=== PATIENT | male | born 1980 | race Hispanic/Latino ===

== ENCOUNTER 2022-03-14 16:39 | Emergency (ER) | payer SELFPAY ==
--- OUTSIDE RECORDS SUMMARY | 2022-03-14 16:42 | XMS REPORT | Continuity of Care Document ---
:1980 Author Organization [facility] t Address Critical access hospital[address] [place] [address] [place] [id number] Care Team Providers Name Role Phone Unavailable Unavailable Unavailable Problems This patient has no known problems. Allergies, Adverse Reactions, Alerts This patient has no known allergies or adverse reactions. Medications This patient has no known medications. Procedures This patient has no known procedures. Results This patient has no known results.
--- NOTE | 2022-03-14 18:34 | RAD REPORT ---
EXAM DESCRIPTION: RAD - Foot Left 3 View - 03/14/2022 6:18 pm CLINICAL HISTORY: Left Foot pain status post injury FINDINGS: No fracture or dislocation is seen. A radiopaque foreign body is not seen
[2022-03-14] MEDS ORDERED: TETANUS & DIPHTHERIA TOX,ADULT 0.5 ML VIAL ONE (19:36)
[2022-03-14] MEDS ORDERED: CEFAZOLIN SODIUM 1 GM/VIAL ONE (19:54)
[2022-03-14] MEDS ORDERED: HYDROCODONE/APAP 10/325 TAB ONE (19:56)
[2022-03-14] MEDS ORDERED: LIDOCAINE 1% MPF 2 ML AMPULE ONE (19:56)
[2022-03-14] MEDS ORDERED: WATER FOR INJ,STERILE 10 ML ONE (19:58)
[2022-03-14] MEDS ORDERED: LIDOCAINE 1% MPF 30 ML VIAL ONE (20:16)
--- NOTE | 2022-03-14 20:25 | ER ---
Nurse's Notes [facility] Name: Vj Brar Sr Age: 41 yrs Sex: Male : 1980 Arrival Date: 03/14/2022 Time: 16:42 Bed 23 Private MD: Diagnosis: Puncture wound without foreign body, left foot Presentation: 03/14 17:22 Chief complaint: Patient states: I was walking my dog and he pulled me and I stepped on jb4 a piece of wood that went into the bottom of my foot. I am diabetic and wanted to get it checked right away. I think the piece is still in there. Coronavirus screen: At this time, the client does not indicate any symptoms associated with coronavirus-19. Ebola Screen: No symptoms or risks identified at this time. Initial Sepsis Screen: Does the patient meet any 2 criteria? No. Patient's initial sepsis screen is negative. Does the patient have a suspected source of infection? No. Patient's initial sepsis screen is negative. Risk Assessment: Do you want to hurt yourself or someone else? Patient reports no desire to harm self or others. Onset of symptoms was March 14, 2022. Transition of care: patient was not received from another setting of care. 17:22 Method Of Arrival: Wheelchair jb4 17:22 Acuity: FARIDA 3 jb4 Historical: - Allergies: 17:23 No Known Allergies; jb4 - Home Meds: 17:23 Metformin Oral [Active]; glimepiride Oral [Active]; jb4 - PMHx: 17:23 Diabetes mellitus; jb4 - PSHx: 17:23 None; jb4 - Immunization history:: Adult Immunizations up to date, Last tetanus immunization: unknown. - Social history:: Smoking status: Patient denies any tobacco usage or history of. Screenin:08 Abuse screen: Denies threats or abuse. Denies injuries from another. Nutritional tw5 screening: No deficits noted. Tuberculosis screening: No symptoms or risk factors identified. Fall Risk None identified. Assessment: 20:08 General: Appears in no apparent distress. uncomfortable, Behavior is calm, cooperative, tw5 appropriate for age. Pain: Complains of pain in left foot Pain currently is 9 out of 10 on a pain scale. Neuro: No deficits noted. Cardiovascular: No deficits noted. Respiratory: No deficits noted. 20:43 Reassessment: Patient states feeling better. Patient states symptoms have improved. tw5 Vital Signs: 17:22 BP 136 / 85; Pulse 89; Resp 16; Temp 98.2(TE); Pulse Ox 100% on R/A; Weight 79.38 kg jb4 (R); Height 5 ft. 6 in. (167.64 cm); Pain 8/10; 20:08 BP 165 / 99; Pulse 74; Resp 18; Pulse Ox 100% ; tw5 20:43 Pulse 80; Resp 18; Pulse Ox 100% on R/A; Pain 8/10; tw5 17:22 Body Mass Index 28.25 (79.38 kg, 167.64 cm) jb4 ED Course: 16:42 Patient arrived in ED. ja2 16:47 Buzz Crenshaw NP is PHCP. pm1 16:47 Gordon Zuleta MD is Attending Physician. pm1 17:23 Triage completed. jb4 17:23 Arm band placed on right wrist. jb4 18:20 Foot Left 3 View XRAY In Process Unspecified. EDMS 20:08 Patient has correct armband on for positive identification. Call light in reach. Side tw5 rails up X2. Adult w/ patient. Pulse ox on. NIBP on. Door closed. Moved to private room. 20:43 Wound care: to puncture located on left foot was dressed with Neosporin, band aid. tw5 20:44 puncture wound. Patient did not have IV access during this emergency room visit. tw5 Administered Medications: 19:39 Drug: Tetanus-Diphtheria Toxoid Adult 0.5 ml {Procurement Technician: [employer]. Exp: jb4 02/06/2024. Lot #: [id number]. } Route: IM; Site: right deltoid; 20:45 Follow up: Response: No adverse reaction tw5 20:08 Drug: [place] (HYDROcodone-acetaminophen) 10 mg-325 mg 1 tabs Route: PO; tw5 20:44 Follow up: Response: No adverse reaction; Pain is decreased; RASS: Alert and Calm (0) tw5 20:08 Drug: Ancef (cefazolin) 1 grams Route: IM; Site: left gluteus; tw5 20:44 Follow up: Response: No adverse reaction tw5 Outcome: 20:23 Discharge ordered by . pm1 20:43 Discharged to home via wheelchair, with family. tw5 20:43 Condition: improved 20:43 Discharge instructions given to patient, Instructed on discharge instructions, follow up and referral plans. medication usage, Demonstrated understanding of instructions, follow-up care, medications, Prescriptions given X 2. 20:44 Patient left the ED. tw5 Signatures: Dispatcher [employer] EDMS Buzz Crenshaw NP SPINNER FRAME pm1 Iván Rocha, CORA RN jb4 Sarah Beth Carbone Tiffany tw5 Corrections: (The following items were deleted from the chart) 17:25 17:23 PMHx: None; maricruz jbMario
--- NOTE | 2022-03-14 20:25 | EDPHYS ---
Physician Documentation [facility] Name: Vj Brar Sr Age: 41 yrs Sex: Male : 1980 Arrival Date: 03/14/2022 Time: 16:42 Bed 23 Private MD: ED Physician Gordon Zuleta HPI: 03/14 17:17 This 41 yrs old Male presents to ER via Wheelchair with complaints of Puncture pm1 Wound To Foot. 17:17 The patient presents with a puncture wound, piece of wood. The complaints affect the pm1 left foot. Context: The problem was sustained outdoors, resulted from the patient stepping on wood the patient can fully bear weight, the patient is able to ambulate. Onset: The symptoms/episode began/occurred just prior to arrival. Modifying factors: The symptoms are alleviated by elevation of extremity, the symptoms are aggravated by weight bearing. Associated signs and symptoms: Pertinent negatives: numbness, tingling. Severity of symptoms: in the emergency department the symptoms are unchanged. The patient has not experienced similar symptoms in the past. The patient has not recently seen a physician. Historical: - Allergies: 17:23 No Known Allergies; jb4 - Home Meds: 17:23 Metformin Oral [Active]; glimepiride Oral [Active]; jb4 - PMHx: 17:23 Diabetes mellitus; jb4 - PSHx: 17:23 None; jb4 - Immunization history:: Adult Immunizations up to date, Last tetanus immunization: unknown. - Social history:: Smoking status: Patient denies any tobacco usage or history of. ROS: 17:17 MS/extremity: Positive for puncture, of the left foot. pm1 17:17 Constitutional: Negative for fever, chills, and weight loss, Cardiovascular: Negative for chest pain, palpitations, and edema, Respiratory: Negative for shortness of breath, cough, wheezing, and pleuritic chest pain. 17:17 Neuro: Negative for headache, weakness, numbness, tingling, and seizure. 17:17 Skin: Positive for puncture, of the left foot. 17:17 All other systems are negative. Exam: 17:17 Constitutional: This is a well developed, well nourished patient who is awake, alert, pm1 and in no acute distress. Head/Face: Normocephalic, atraumatic. 17:17 Cardiovascular: Exam negative for acute changes, Rate: normal, Rhythm: regular, Pulses: no pulse deficits are appreciated. 17:17 Respiratory: Exam negative for acute changes, respiratory distress, shortness of breath. 17:17 Musculoskeletal/extremity: Extremities: grossly normal except: noted in the arch of left foot: puncture, Circulation is intact in all extremities. 17:17 Skin: Appearance: normal except for affected area, injury, puncture(s), of the arch of left foot. Vital Signs: 17:22 BP 136 / 85; Pulse 89; Resp 16; Temp 98.2(TE); Pulse Ox 100% on R/A; Weight 79.38 kg jb4 (R); Height 5 ft. 6 in. (167.64 cm); Pain 8/10; 20:08 BP 165 / 99; Pulse 74; Resp 18; Pulse Ox 100% ; tw5 20:43 Pulse 80; Resp 18; Pulse Ox 100% on R/A; Pain 8/10; tw5 17:22 Body Mass Index 28.25 (79.38 kg, 167.64 cm) jb4 MDM: 17:24 Patient medically screened. pm1 17:34 Data reviewed: vital signs. Data interpreted: Pulse oximetry: on room air is 100 %. pm1 Interpretation: normal. 20:22 Counseling: I had a detailed discussion with the patient and/or guardian regarding: the pm1 historical points, exam findings, and any diagnostic results supporting the discharge/admit diagnosis, the need for outpatient follow up, to return to the emergency department if symptoms worsen or persist or if there are any questions or concerns that arise at home. 03/14 17:17 Order name: Foot Left 3 View XRAY; Complete Time: 18:48 pm1 Administered Medications: 19:39 Drug: Tetanus-Diphtheria Toxoid Adult 0.5 ml {Welder Experimental: [employer]. Exp: jb4 02/06/2024. Lot #: [id number]. } Route: IM; Site: right deltoid; 20:45 Follow up: Response: No adverse reaction tw5 20:08 Drug: [place] (HYDROcodone-acetaminophen) 10 mg-325 mg 1 tabs Route: PO; tw5 20:44 Follow up: Response: No adverse reaction; Pain is decreased; RASS: Alert and Calm (0) tw5 20:08 Drug: Ancef (cefazolin) 1 grams Route: IM; Site: left gluteus; tw5 20:44 Follow up: Response: No adverse reaction tw5 Disposition Summary: 03/14/22 20:23 Discharge Ordered Location: Home pm1 Problem: new pm1 Symptoms: have improved pm1 Condition: Stable pm1 Diagnosis - Puncture wound without foreign body, left foot pm1 Followup: pm1 - With: Emergency Department - When: As needed - Reason: Worsening of condition Followup: pm1 - With: Private Physician - When: 2 - 3 days - Reason: Recheck today's complaints, Continuance of care, Re-evaluation by your physician Discharge Instructions: - Discharge Summary Sheet pm1 - Puncture Wound pm1 Forms: - Medication Reconciliation Form pm1 - Thank You Letter pm1 - Antibiotic Education pm1 - Prescription Opioid Use pm1 Prescriptions: - Cephalexin 500 mg Oral Capsule - take 1 capsule by ORAL route every 6 hours for 10 days; 40 capsule; Refills: 0, pm1 Product Selection Permitted - Bactrim DS 800-160 mg Oral Tablet - take 1 tablet by ORAL route every 12 hours for 10 days; 20 tablet; Refills: 0, pm1 Product Selection Permitted Addendum: 03/19/2022 07:44 Co-signature as Attending Physician, Gordon Zuleta MD I agree with the assessment and c leos plan of care. Signatures: Dispatcher [employer] Gordon Olson MD MD cha Marinas, Patrick, BUNDLE WRAPPER BUNDLE WRAPPER pm1 Iván Rocha, RN RN david4 Meghan Bray tw5 Corrections: (The following items were deleted from the chart) 03/14 17:25 17:23 PMHx: None; maricruz alcantara
[2022-03-14 20:48] VITALS: TEMP 98.2; O2SAT 100
[2022-03-14 20:50] VITALS: BP 165/99
== END 2022-03-14 20:44 | disposition home or self-care (01) ==
LOC: ER 16:39
DX: S91.332A Puncture wound without foreign body, left foot, initial encounter (principal); E11.9 Type 2 diabetes mellitus without complications; Z23 Encounter for immunization
CPT/HCPCS: 90471; 90714; 96372; 99284; J0690

== ENCOUNTER 2024-12-13 17:54 | Emergency (ER) | payer OTHER, SELFPAY ==
[2024-12-13 19:06] LABS: SARS-CoV-2 Antigen CONTROL BLUE LINE VIS/BG OK; SARS-CoV-2 Antigen Rapid Res Negative (Negative)
--- NOTE | 2024-12-13 19:26 | RAD REPORT ---
EXAM: Chest Pa And Lat (2 Views) HISTORY: 44 years Male COUGH COMPARISON: None. FINDINGS: LUNGS/PLEURA: The lungs are clear. No pleural effusions or pneumothorax. No pulmonary edema. MEDIASTINUM: The mediastinal silhouette is within normal limits. CARDIAC: The cardiac silhouette is within normal limits. UPPER ABDOMEN: No significant abnormality. BONES: No acute abnormality. LINES/TUBES/OTHER: N/A IMPRESSION: No evidence of acute cardiopulmonary disease.
--- NOTE | 2024-12-13 20:32 | ER ---
Nurse's Notes [facility] Name: Vj Brar Sr Age: 44 yrs Sex: Male : 1980 Arrival Date: 12/13/2024 Time: 17:54 Bed IW10 Private MD: Diagnosis: Cough;Influenza due to identified novel influenza A virus with other respiratory manifestations;Fever, unspecified Presentation: 12/13 18:29 Chief complaint: Patient states: Cough, fever, dizzy, painful cough, TRUONG, fatigue for 3 ll1 days. No flavor to food, has some nausea. Coronavirus screen: Client denies travel out of the [place] in the last 14 days. congestion, cough unrelated to allergies, difficulty breathing, fatigue, sore throat, Client presents with at least one sign or symptom that may indicate coronavirus-19. Standard/surgical mask placed on the client. Ebola Screen: Patient denies travel to an Ebola-affected area in the 21 days before illness onset. Initial Sepsis Screen: Does the patient meet any 2 criteria? No. Patient's initial sepsis screen is negative. Does the patient have a suspected source of infection? No. Patient's initial sepsis screen is negative. Risk Assessment: Do you want to hurt yourself or someone else? Patient reports no desire to harm self or others. Onset of symptoms was December 11, 2024. 18:29 Method Of Arrival: Ambulatory 1 18:29 Acuity: FARIDA 3 ll1 Triage Assessment: 18:31 General: Appears uncomfortable, ill, Behavior is calm, cooperative, appropriate for ll1 age. Pain: Complains of pain in chest Quality of pain is described as aching. Neuro: Reports headache weakness. Cardiovascular: Reports chest pain, fatigue, nausea. Respiratory: Reports cough that is pain with cough. Historical: - Allergies: 18:31 No Known Allergies; ll1 - Home Meds: 18:31 Xigduo XR oral [Active]; ll1 - PMHx: 18:31 diabetes mellitus; ll1 - PSHx: 18:31 None; ll1 - Immunization history:: Adult Immunizations up to date. - Infectious Disease History:: Denies. - Social history:: Smoking status: Patient denies any tobacco usage or history of. - Family history:: not pertinent. Screenin:37 [facility] ED Fall Risk Assessment (Adult) History of falling in the last 3 months, dd2 including since admission No falls in past 3 months (0 pts) Confusion or Disorientation No (0 pts) Intoxicated or Sedated No (0 pts) Impaired Gait No (0 pts) Mobility Assist Device Used No (0 pt) Altered Elimination No (0 pt) Score/Fall Risk Level 0 - 2 = Low Risk Oriented to surroundings, Maintained a safe environment, Educated pt \T\ family on fall prevention, incl call for assistance when getting out of bed, Assessed \T\ reinforced patient's understanding of fall precautions, Hourly rounding (assess needs \T\ fall precautionary measures) done. Abuse screen: Denies threats or abuse. Nutritional screening: No deficits noted. Tuberculosis screening: No symptoms or risk factors identified. Assessment: 21:37 General: Appears in no apparent distress. uncomfortable, Behavior is calm, cooperative, dd2 appropriate for age. Pain: Complains of pain in chest Pain does not radiate. Pain currently is 4 out of 10 on a pain scale. Pain began 2-3 days ago. Aggravated by COUGH. Neuro: No deficits noted. Scott Agitation-Sedation Scale (RASS): 0 - Alert and Calm Level of Consciousness is awake, alert, obeys commands, Oriented to person, place, time, situation, Appropriate for age. Cardiovascular: Reports chest pain, Heart tones S1 S2 present Patient's skin is warm and dry. Rhythm is regular Chest pain is described as mild, is located in left anterior is aggravated by COUGH. Respiratory: Reports cough that is non-productive, persistent pain with cough Airway is patent Respiratory effort is even, unlabored, Respiratory pattern is regular, symmetrical, Breath sounds are clear bilaterally. GI: No deficits noted. No signs and/or symptoms were reported involving the gastrointestinal system. : No deficits noted. No signs and/or symptoms were reported regarding the genitourinary system. EENT: No deficits noted. No signs and/or symptoms were reported regarding the EENT system. Derm: No deficits noted. No signs and/or symptoms reported regarding the dermatologic system. Skin is healthy with good turgor, Skin is dry, Skin temperature is warm. Musculoskeletal: No deficits noted. No signs and/or symptoms reported regarding the musculoskeletal system. Circulation, motion, and sensation intact. Range of motion: intact in all extremities. Vital Signs: 18:29 BP 150 / 85; Pulse 95; Resp 20; Temp 98.6; Pulse Ox 100% on R/A; Weight 68.04 kg; ll1 Height 5 ft. 6 in. ; Pain 9/10; 21:37 BP 143 / 83; Pulse 86; Resp 18; Temp 98.4; Pulse Ox 100% on R/A; dd2 18:29 Body Mass Index 24.21 (68.04 kg, 167.64 cm) ll1 18:29 Pain Scale: Adult ll1 Lana Coma Score: 21:37 Eye Response: spontaneous(4). Motor Response: obeys commands(6). Verbal Response: dd2 oriented(5). Total: 15. ED Course: 18:06 Patient arrived in ED. al6 18:31 Triage completed. ll1 18:33 Arm band placed on. ll1 18:36 Flu Sent. ll1 18:36 Strep Sent. ll1 18:36 SARS RAPID Sent. ll1 18:42 Flu Sent. jb4 18:42 Strep Sent. jb4 18:42 SARS RAPID Sent. jb4 18:42 COVID swab sent to lab. Flu and/or RSV swab sent to lab. Strep swab sent to lab. jb4 18:43 Gordon Zuleta MD is Attending Physician. hesham 19:13 EKG done. bm8 19:15 Chest Pa And Lat (2 Views) XRAY In Process Unspecified. EDMS 21:37 Patient has correct armband on for positive identification. Bed in low position. Call dd2 light in reach. Side rails up X 1. Provided Education on: CALL LIGHT, MEDICATIONS. Client placed on continuous cardiac and pulse oximetry monitoring. NIBP monitoring applied. teletypesetter monitor on. Door closed. Noise minimized. Warm blanket given. Pillow given. Verbal reassurance given. 21:37 No provider procedures requiring assistance completed. Patient maintains SpO2 dd2 saturation greater than 95% on room air. 23:42 IV discontinued, intact, bleeding controlled, No redness/swelling at site. Pressure lg3 dressing applied. Administered Medications: 21:15 Not Given (Physician Discretion): ns 0.9% 1000 ml IV at 1000 ml once; to be given as a dd2 bolus over 60 minutes 21:15 Not Given (Physician Discretion): rocephin1 grams IV at per protocol once; Given slow dd2 IV push per pharmacy instructions 21:25 Drug: AZITHromycin PO 500 mg PO once Route: PO; dd2 21:27 Follow up: Response: Medication administered at discharge. dd2 21:25 Drug: Oseltamivir PO 75 mg PO once Route: PO; dd2 21:27 Follow up: Response: Medication administered at discharge. dd2 Medication: 21:37 VIS not applicable for this client. dd2 Outcome: 20:32 Discharge ordered by . hesham 23:42 Discharged to home ambulatory, lg3 23:42 Condition: stable 23:42 Discharge instructions given to patient, Instructed on discharge instructions, follow up and referral plans. medication usage, Demonstrated understanding of instructions, follow-up care, medications, Prescriptions given X 3, 23:43 Patient left the ED. lg3 Signatures: Dispatcher [employer] EDMS Gordon Zuleta MD MD cha Bryson, James, RN RN jb4 Stephanie Castellanos RN RN lg3 Adrienne Gudino RN RN ll1 Stephane Hurst RN RN bm8 TANGELA MG RN RN dd2 Dana Belle6 Corrections: (The following items were deleted from the chart) 18:33 18:31 Allergies: Xigduo XR; ll1 ll1
--- NOTE | 2024-12-13 20:32 | EDPHYS ---
Physician Documentation [facility] Name: Vj Brar Sr Age: 44 yrs Sex: Male : 1980 Arrival Date: 12/13/2024 Time: 17:54 Bed [id number] Private MD: [facility] Physician Gordon Zuleta HPI: 12/13 20:24 This 44 yrs old Male presents to ER via Ambulatory with complaints of Chest hesham Pain, Cough. 20:24 The patient or guardian reports chest pain that is located primarily in the anterior hesham chest wall, bilaterally. Onset: 3 day(s) ago. 20:25 Onset: The symptoms/episode began/occurred 3 day(s) ago. Modifying factors: The hesham symptoms are alleviated by remaining still, the symptoms are aggravated by nothing. The patient or guardian reports cough, that is intermittent, flu symptoms, arthralgias, low-grade fever, myalgias, stridor. Severity of symptoms: At their worst the symptoms were mild, in the emergency department the symptoms are unchanged. Modifying factors: The symptoms are alleviated by cool environment, the symptoms are aggravated by COUGH. The chest pain is described as aching, WITH COUGH. Modifying factors: The symptoms are alleviated by remaining still, rest, the symptoms are aggravated by cough. Severity of pain: At its worst the pain was mild moderate in the emergency department the pain is unchanged. Severity of symptoms: At their worst the symptoms were mild in the emergency department the symptoms are unchanged. The patient has experienced similar episodes in the past, several times. Historical: - Allergies: 18:31 No Known Allergies; ll1 - Home Meds: 18:31 Xigduo XR oral [Active]; ll1 - PMHx: 18:31 diabetes mellitus; ll1 - PSHx: 18:31 None; ll1 - Immunization history:: Adult Immunizations up to date. - Infectious Disease History:: Denies. - Social history:: Smoking status: Patient denies any tobacco usage or history of. - Family history:: not pertinent. ROS: 20:27 Constitutional: Negative for fever, chills, and weight loss, Eyes: Negative for injury, hesham pain, redness, and discharge, ENT: Negative for injury, pain, and discharge, Neck: Negative for injury, pain, and swelling, Cardiovascular: Negative for chest pain, palpitations, and edema, Abdomen/GI: Negative for abdominal pain, nausea, vomiting, diarrhea, and constipation, Back: Negative for injury and pain, : Negative for injury, bleeding, discharge, and swelling, MS/Extremity: Negative for injury and deformity, Skin: Negative for injury, rash, and discoloration, Neuro: Negative for headache, weakness, numbness, tingling, and seizure, Psych: Negative for depression, anxiety, suicide ideation, homicidal ideation, and hallucinations, Allergy/Immunology: Negative for hives, rash, and allergies, Endocrine: Negative for neck swelling, polydipsia, polyuria, polyphagia, and marked weight changes, Hematologic/Lymphatic: Negative for swollen nodes, abnormal bleeding, and unusual bruising, 20:27 Respiratory: Positive for cough, "sounds productive", Exam: 20:27 Head/Face: Normocephalic, atraumatic. Eyes: Pupils equal round and reactive to light, hesham extra-ocular motions intact. Lids and lashes normal. Conjunctiva and sclera are non-icteric and not injected. Cornea within normal limits. Periorbital areas with no swelling, redness, or edema. ENT: Nares patent. No nasal discharge, no septal abnormalities noted. Tympanic membranes are normal and external auditory canals are clear. Oropharynx with no redness, swelling, or masses, exudates, or evidence of obstruction, uvula midline. Mucous membranes moist. Neck: Trachea midline, no thyromegaly or masses palpated, and no cervical lymphadenopathy. Supple, full range of motion without nuchal rigidity, or vertebral point tenderness. No Meningismus. Chest/axilla: Normal chest wall appearance and motion. Nontender with no deformity. No lesions are appreciated. Cardiovascular: Regular rate and rhythm with a normal S1 and S2. No gallops, murmurs, or rubs. Normal PMI, no JVD. No pulse deficits. Abdomen/GI: Soft, non-tender, with normal bowel sounds. No distension or tympany. No guarding or rebound. No evidence of tenderness throughout. Back: No spinal tenderness. No costovertebral tenderness. Full range of motion. Skin: Warm, dry with normal turgor. Normal color with no rashes, no lesions, and no evidence of cellulitis. MS/ Extremity: Pulses equal, no cyanosis. Neurovascular intact. Full, normal range of motion., bilateral aka Neuro: Awake and alert, GCS 15, oriented to person, place, time, and situation. Cranial nerves II-XII grossly intact. Motor strength 5/5 in all extremities. Sensory grossly intact. Cerebellar exam normal. Normal gait. Psych: Awake, alert, with orientation to person, place and time. Behavior, mood, and affect are within normal limits. 20:27 Constitutional: The patient appears febrile, 20:27 Chest/axilla: Exam negative for acute changes, Inspection: normal, Palpation: is normal, Axilla: are normal, Lymph nodes: lymphadenopathy is not appreciated, 20:27 Respiratory: the patient does not display signs of respiratory distress, Respirations: normal, Breath sounds: are clear throughout, Respiratory rate: 20 20:34 ECG was reviewed by the Attending Physician. [facility] 20:34 ECG was reviewed by the Attending Physician. [facility] Vital Signs: 18:29 BP 150 / 85; Pulse 95; Resp 20; Temp 98.6; Pulse Ox 100% on R/A; Weight 68.04 kg; ll1 Height 5 ft. 6 in. ; Pain 9/10; 21:37 BP 143 / 83; Pulse 86; Resp 18; Temp 98.4; Pulse Ox 100% on R/A; dd2 18:29 Body Mass Index 24.21 (68.04 kg, 167.64 cm) ll1 18:29 Pain Scale: Adult ll1 Mellott Coma Score: 21:37 Eye Response: spontaneous(4). Motor Response: obeys commands(6). Verbal Response: dd2 oriented(5). Total: 15. MDM: 18:43 Medical Screening Exam initiated [facility] 20:29 Antibiotic administration: The patient is discharged and will get outpatient [facility] antibiotics, Zithromax. Differential diagnosis: obstructed airway, bronchitis, flu, URI, anxiety, chest wall pain, costochondritis, pneumonia, pulmonary embolus, stable angina, unstable angina. HEART Score: History: Slightly Suspicious (0), ECG: Normal (0), Age: < or = 45 years (0), Risk Factors: 1 or 2 risk factors (1), [DM] [+ Family HX] Total Score = 0. The patient was not given aspirin in the Emergency Department. Not indicated due to patient's past medical history. Differential Diagnosis: Obstructed Airway Bronchitis Influenza Upper Respiratory Infection Sinusitis Pharyngitis Viral Syndrome Pneumonia Tracheal Injury. STEVE Risk Score: TOTAL SCORE = 0. Data reviewed: vital signs, nurses notes, lab test result(s), Flu: positive radiologic studies, plain films. Consideration of Admission/Observation Escalation of care including admission/observation considered. I considered the following discharge prescriptions or medication management in the emergency department Medications were administered in the Emergency Department. See MAR. Independent interpretation of the following test(s) in the Emergency Department EKG: See my EKG interpretation above. Test considered but Not performed: Labs: NO LABS. Care significantly affected by the following chronic conditions: Diabetes. Counseling: I had a detailed discussion with the patient and/or guardian regarding the historical points, exam findings, and any diagnostic results supporting the discharge/admit diagnosis, lab results, radiology results, the need for outpatient follow up, for definitive care, a family practitioner. 12/13 18:34 Order name: Flu; Complete Time: 19:30 ll1 12/13 18:34 Order name: Strep; Complete Time: 19:30 [facility] 12/13 18:34 Order name: SARS RAPID; Complete Time: 19:30 [facility] 12/13 19:12 Order name: Throat Culture [facility] 12/13 18:45 Order name: Chest Pa And Lat (2 Views) XRAY; Complete Time: 19:30 [facility] 12/13 18:45 Order name: EKG; Complete Time: 18:45 [facility] 12/13 18:45 Order name: EKG - Nurse/Tech; Complete Time: 19:13 hesham EC:34 Rate is 70 beats/min. Rhythm is regular. QRS Phillips is Normal. AK interval is normal. QRS hesham interval is normal. QT interval is normal. No Q waves. T waves are Normal. No ST changes noted. Clinical impression: Normal ECG and No evidence of ischemia. Interpreted by me. Reviewed by me. 20:34 Rate is 77 beats/min. Rhythm is regular. QRS Phillips is Normal. AK interval is normal. QRS hesham interval is normal. QT interval is normal. No Q waves. T waves are Normal. No ST changes noted. Clinical impression: Normal ECG and No evidence of ischemia. Interpreted by me. Reviewed by me. Administered Medications: 21:15 Not Given (Physician Discretion): ns 0.9% 1000 ml IV at 1000 ml once; to be given as a dd2 bolus over 60 minutes 21:15 Not Given (Physician Discretion): rocephin1 grams IV at per protocol once; Given slow dd2 IV push per pharmacy instructions 21:25 Drug: AZITHromycin PO 500 mg PO once Route: PO; dd2 21:27 Follow up: Response: Medication administered at discharge. dd2 21:25 Drug: Oseltamivir PO 75 mg PO once Route: PO; dd2 21:27 Follow up: Response: Medication administered at discharge. dd2 Disposition Summary: 12/13/24 20:32 Discharge Ordered Notes: Location: Home [facility] Problem: new [facility] Symptoms: have improved [facility] Condition: Stable [facility] Diagnosis - Cough hesham - Influenza due to identified novel influenza A virus with other respiratory [facility] manifestations - Fever, unspecified hesham Followup: hesham - With: Private Physician - When: 2 - 3 days - Reason: Recheck today's complaints, Continuance of care, Re-evaluation by your physician Discharge Instructions: - Discharge Summary Sheet hesham - Fever, Adult hesham - Influenza, Adult hesham - Cool Mist Vaporizer hesham - Influenza, Adult, [id number] hesham - Cough, Adult, [id number] hesham - Cough, Adult hesham - Fever, Adult, [id number] [facility] Forms: - Medication Reconciliation Form [facility] - Antibiotic Education [facility] - Prescription Opioid Use [facility] - Patient Portal Instructions [facility] - Leadership Thank You Letter [facility] - Work release form dd2 Prescriptions: - Tessalon Perles 100 mg Oral capsule - take 1 capsule ORAL route every 8 hours As needed; 30 capsule; Refills: 0, [facility] Product Selection Permitted - Tamiflu 75 mg Oral capsule - take 1 tablet ORAL route every 12 hours for 5 days; 10 tablet; Refills: 0, [facility] Product Selection Permitted - Zithromax 500 mg Oral Tablet - take 1 tablet ORAL route once daily for 5 days; 5 tablet; Refills: 0, Product [facility] Selection Permitted Signatures: Dispatcher [employer] Gordon Olson MD MD cha Lewis, Lynsay, RN RN ll1 TANGELA MG RN RN dd2 Corrections: (The following items were deleted from the chart) 18:33 18:31 Allergies: Xigduo XR; ll1 ll1
[2024-12-13] MEDS ORDERED: OSELTAMIVIR 75 MG CAP PO ONE (21:06)
[2024-12-13] MEDS ORDERED: AZITHROMYCIN 250 MG TAB ONE (21:06)
[2024-12-14 03:23] VITALS: BP 150/85; TEMP 98.6; O2SAT 100
== END 2024-12-13 23:43 | disposition home or self-care (01) ==
LOC: ER 17:54
DX: J10.1 Influenza due to other identified influenza virus with other respiratory manifestations (principal); R50.9 Fever, unspecified; Z11.52 Encounter for screening for COVID-19
CPT/HCPCS: 36415; 71046; 87070; 87081; 87804; 87811; 93005; 99284

== ENCOUNTER 2025-07-06 14:22 | Emergency (ER) | payer OTHER, SELFPAY ==
--- OUTSIDE RECORDS SUMMARY | 2025-07-06 14:26 | XMS REPORT | Continuity of Care Document ---
Author Name Unknown Address [address] [facility] [place] [address] [facility] [place] Address [address] [facility] [address]. 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 Role Phone Gisselle Forrester Primary Care Physician [address] Attending Clinician Unavailable Thomas [address] DO Attending Clinician [phone] ZAKI JALLOH Attending Clinician Unavailable Miguel Ángel Sinclair MD Attending Clinician [phone] Sebastian Danielson DO Attending Clinician [phone] Zaki Jalloh MD Attending Clinician [phone] Admitting Clinician Unavailable SEBASTIAN DANIELSON Admitting Clinician Unavailable Sebastian Danielson DO Admitting Clinician [phone] Problems Condition Name Condition Details Condition Category Status Onset Date Resolution Date Last Treatment Date Treating Clinician Comments Source Diarrhea, unspecifie d type Diarrhea, unspecifie d type Disease Active 02-03 00:00: 00 [facility] Allergies, Adverse Reactions, Alerts Allergy Name Allergy Type Status Severity Reaction(s) Onset Date Inactive Date Treating Clinician Comments Source NO KNOWN ALLERGIE S Drug Class Active [facility] Social History Social Habit Start Date Stop Date Quantity Comments Source History of tobacco use Cigarette Smoker [facility] Gender identity [facility] Sexual orientation U niversity [facility] History SDOH Social Connections Get Together [facility] History SDOH Social Connections Restorationism [facility] History SDOH Social Connections Membership [facility] History SDOH Social Connections Meetings [facility] History SDOH Alcohol Frequency 2023-02-04 00:00:00 2023-02-04 00:00:00 1 [facility] History of Social function 2023-02-04 00:00:00 2023-02-04 00:00:00 [facility] History SDOH Alcohol Std Drinks 2023-02-04 00:00:00 2023-02-04 00:00:00 0 [facility] History SDOH Alcohol Binge 2023-02-04 00:00:00 2023-02-04 00:00:00 1 [facility] History SDOH Social Connections Phone 2023-02-04 00:00:00 2023-02-04 00:00:00 5 [facility] History SDOH Social Connections Living 2023-02-04 00:00:00 2023-02-04 00:00:00 3 [facility] History SDOH Physical Activity DPW 2023-02-04 00:00:00 2023-02-04 00:00:00 5 [facility] History SDOH Physical Activity MPS 2023-02-04 00:00:00 2023-02-04 00:00:00 2 [facility] History SDOH Financial 2023-02-04 00:00:00 2023-02-04 00:00:00 5 [facility] History SDOH Food Worry 2023-02-04 00:00:00 2023-02-04 00:00:00 1 [facility] History SDOH Food Scarcity 2023-02-04 00:00:00 2023-02-04 00:00:00 1 [facility] History SDOH Transport Med 2023-02-04 00:00:00 2023-02-04 00:00:00 2 [facility] History SDOH Transport Non-Med 2023-02-04 00:00:00 2023-02-04 00:00:00 2 [facility] Exposure to SARS-CoV-2 (event) 2023-01-24 00:00:00 2023-02-03 21:42:00 Not sure [facility] Alcohol intake 2023-02-03 00:00:00 2023-02-03 00:00:00 Ex-drinker (finding) [facility] Sex Ass[birth year] At [birth year] 00:00:00 [facility] Smoking Status Start Date Stop Date Source Ex-smoker 2023-02-03 00:00:00 2023-02-03 [facility] Ordered Medication Name Filled Medication Name Start Date Stop Date Current Medication? Ordering Clinician Indication Dosage Frequency Signature (SIG) Comments Components Source glimepiride 4 mg tablet 12-28 00:00: 00 Yes 1mg [facility] Xigduo XR 10 mg-1,000 mg tablet,exte nded release 12-28 00:00: 00 Yes 1mg [facility] Viagra 100 mg tablet 12-28 00:00: 00 Yes 1mg [employer] naproxen sodium 550 mg tablet 06-27 00:00: 00 Yes [id number] 550mg Take 1 tablet by mouth in the morning and 1 tablet in the evening. Take with meals. [facility] methocarbam oL 500 mg tablet 06-27 00:00: 00 07-03 04:59 :00 No [id number] 500mg Take 1 tablet by mouth in the morning and 1 tablet at noon and 1 tablet in the evening. Do all this for 5 days. [facility] metFORMIN 1,000 mg tablet 02-06 17:30: 10 02-06 00:00 :00 No 1000mg Take 1 tablet by mouth in the morning and 1 tablet in the evening. Take with meals. [facility] glyBURIDE 5 mg tablet 12 17:30: 10 02-06 00:00 :00 No 5mg Take 1 tablet by mouth daily with breakfast. [facility] glyBURIDE 5 mg tablet 02-06 00:00: 00 03-09 04:59 :00 No [id number] 5mg Take 1 tablet by mouth daily with breakfast for 30 days. [facility] metFORMIN 1,000 mg tablet 02-06 00:00: 00 03-09 04:59 :00 No [id number] 1000mg Take 1 tablet by mouth in the morning and 1 tablet in the evening. Take with meals. Do all this for 30 days. [facility] KCL (KLOR-CON M20) tablet 40 mEq 02-05 15:30: 00 02-05 15:45 :00 No 40meq 40 mEq, Oral, ONCE, 1 dose, On Tue02/05/23 at 0930, Routine [facility] magnesium sulfate in water 2 gram/50 mL (4 %) infusion 2 g 02-04 18:30: 00 02-04 19:09 :00 No 2g 2 g, IV Piggyback, Administer over 60 Minutes, ONCE, 1 dose, On Tue02/04/23 at 1230, Routine [facility] Sliding Scale Insulin - Lispro (HumaLOG) + Fsbg Testing 02-04 18:00: 00 Yes Subcutaneo us, Q4H, First dose (after last modificati on) on Tue02/04/23 at 1200, Until Discontinu ed, Routine [facility] ketorolac (TORADOL) injection 15 mg 02-04 15:39: 01 02-06 15:38 :01 No 15mg 15 mg, Slow IV Push, Q6HPRN, Starting on Tue02/04/23 at 0939, Until 02/06/23 at 1038, Routine, Alternate with [place] for pain scale 4-6, alternate if patient refuses norco. [facility] enoxaparin (LOVENOX) injection 40 mg 02-04 15:00: 00 Yes 40mg 40 mg, Subcutaneo us, DAILY, First dose on Tue02/04/23 at 0900, Until Discontinu ed, Routine [facility] lactated ringers IV infusion 1,000 mL 02-04 07:00: 00 Yes 1000mL at 150 mL/hr, 1,000 mL, IV Infusion, CONTINUOUS , Starting on Tue02/04/23 at 0100, Until Discontinu ed, Routine [facility] Sliding Scale Insulin - Lispro (HumaLOG) + Fsbg Testing 02-04 06:00: 00 02-04 14:28 :29 No Subcutaneo us, Q6H, First dose on Tue02/04/23 at 0000, Until Discontinu ed, Routine [facility] glucagon (GLUCAGEN DIAGNOSTIC KIT) injection 1 mg 02-04 05:51: 09 Yes 1mg 1 mg, Intramuscu lar, PRN, Starting on Tue02/03/23 at 2351, Until Discontinu ed, SALAS, Blood Glucose < or = 70 mg/dL and patient is NPO, unable to swallow or has mental changes. [facility] dextrose 50 % in water (D50W) injection 25 mL 02-04 05:51: 09 Yes 25mL 25 mL, Slow IV Push, PRN, Starting on Tue02/03/23 at 2351, Until Discontinu ed, SALAS, Blood Glucose < or = 70 mg/dL and patient is NPO, unable to swallow or has mental status changes. [facility] ondansetron (ZOFRAN (PF)) injection 4 mg 02-04 05:50: 45 Yes 4mg 4 mg, Slow IV Push, Q6HPRN, Starting on Tue02/03/23 at 2350, Until Discontinu ed, Routine, Nausea and Vomiting (N/V) [facility] HYDROcodone -acetaminop hen (NORCO 5) 5-325 mg tablet 1 tablet 02-04 05:49: 53 02-06 05:48 :53 No 1{tbl} 1 tablet, Oral, Q6HPRN, Starting on Tue02/03/23 at 2349, Until 02/05/23 at 2348, Routine, Pain (scale 4-6) [facility] acetaminoph en (TYLENOL) tablet 650 mg 02-04 05:49: 50 Yes 650mg 650 mg, Oral, Q6HPRN, Starting on Sheri 02/03/23 at 2349, Until Discontinu ed, Routine, Pain (scale 1-3) [facility] NaCl 0.9% (NS) bolus infusion 1,000 mL 02-04 04:00: 00 02-04 06:06 :00 No 1000mL at 999 mL/hr, 1,000 mL, IV Infusion, ONCE, 1 dose, On Sheri 02/03/23 at 2200, STAT [facility] mupirocin 2 % ointment 2018-11 007 00:00: 00 02-04 00:00 :00 No [id number] Apply to area(s) 3 (three) times daily. [facility] Vital Signs Vital Name Observation Time Observation Value Comments S ource Systolic blood pressure 2023-06-27 16:01:00 146 mm[Hg] [facility] Diastolic blood pressure 2023-06-27 16:01:00 108 mm[Hg] [facility] Heart rate 2023-06-27 16:01:00 95 /min [facility] Body temperature 2023-06-27 16:01:00 36.89 Deepa [facility] Respiratory rate 2023-06-27 16:01:00 20 /min [facility] Body height 2023-06-27 16:01:00 167.6 cm [facility] Body weight 2023-06-27 16:01:00 69.854 kg [facility] BMI 2023-06-27 16:01:00 24.86 kg/m2 [facility] Oxygen saturation in Arterial blood by Pulse oximetry 2023-06-27 16:01:00 100 /min [facility] Respiratory rate 2023-02-06 21:42:00 18 /min [facility] Oxygen saturation in Arterial blood by Pulse oximetry 2023-02-06 21:42:00 98 /min [facility] Systolic blood pressure 2023-02-06 21:42:00 136 mm[Hg] [facility] Diastolic blood pressure 2023-02-06 21:42:00 94 mm[Hg] [facility] Heart rate 2023-02-06 21:42:00 66 /min [facility] Body temperature 2023-02-06 21:42:00 35.94 Deepa [facility] Body weight 2023-02-06 08:18:00 77.474 kg [facility] BMI 2023-02-06 08:18:00 27.57 kg/m2 [facility] Body height 2023-02-04 06:23:00 167.6 cm [facility] Heart Rate 2024-12-28 15:01:00 80.00 /min [facility] Respiratory Rate 2024-12-28 15:01:00 18.00 /min [facility] BP Systolic 2024-12-28 15:01:00 128 mm[Hg] Step hen [facility] BP Diastolic 2024-12-28 15:01:00 82 mm[Hg] Jose phen [facility] Weight Measured 2024-12-28 15:01:00 163.40 pounds [facility] Height Measured 2024-12-28 15:01:00 66.22 inches [facility] Body Temperature 2024-12-28 15:01:00 98.60 degrees [facility] Procedures Procedure Date / Time Performed Performing Clinician Source ASSIGNMENT OF BENEFITS 2023-06-27 16:44:51 Docto r Unassigned, [place] [facility] XR SHOULDER <2 VW LEFT 2023-06-27 16:35:[address] llip [facility] XR SHOULDER 2+ VW RIGHT 2023-06-27 16:35:[address] illip [facility] CONSENT/REFUSAL FOR DIAGNOSIS AND TREATMENT 2023-06-27 15:55:05 Doctor Unassigned, [place] [facility] POCT GLUCOSE (AUTOMATED) 2023-02-06 21:43:00 Zaki Jalloh [facility] POCT GLUCOSE (AUTOMATED) 2023-02-06 16:45:00 Zaki Jalloh [facility] POCT GLUCOSE (AUTOMATED) 2023-02-06 13:09:00 Zaki Jalloh [facility] PHOSPHORUS 2023-02-06 09:26:00 Zaki Jalloh [facility] LIPASE 2023-02-06 09:26:00 Zaki Jalloh [facility] BASIC METABOLIC PANEL (NA, K, CL, CO2, GLUCOSE, BUN, CREATININE, CA) 2023-02-06 09:26:[facility] 2023-02-06 09:26:00 Zaki Jalloh [facility] POCT GLUCOSE (AUTOMATED) 2023-02-06 09:24:00 [facility] POCT GLUCOSE (AUTOMATED) 2023-02-06 06:01:00 Monty [facility] POCT GLUCOSE (AUTOMATED) 2023-02-06 02:13:00 Monty [facility] POCT GLUCOSE (AUTOMATED) 2023-02-05 23:01:00 Monty [facility] POCT GLUCOSE (AUTOMATED) 2023-02-05 17:35:00 Monty [facility] HB ECG ROUTINE & RHYTHM STRIP 2023-02-05 17:30:43 Jessy Phillips [facility] POCT GLUCOSE (AUTOMATED) 2023-02-05 14:00:00 Monty [facility] LIPASE 2023-02-05 10:37:00 Tonio [facility] MAGNESIUM 2023-02-05 10:37:00 Zaki Jalloh [facility] HEPATIC FUNCTION PANEL (22208) (ALB,T.PRO,BILI T,BU/BC,ALT,AST,ALK PHOS) 2023-02-05 10:37:00 Monty [facility] BASIC METABOLIC PANEL (NA, K, CL, CO2, GLUCOSE, BUN, CREATININE, CA) 2023-02-05 10:37:00 Tonio Reyes [facility] CBC WITH DIFF 2023-02-05 10:37:00 Tonio Reyes Un [facility] POCT GLUCOSE (AUTOMATED) 2023-02-05 10:36:00 Zaki Jalloh [facility] POCT GLUCOSE (AUTOMATED) 2023-02-05 06:05:00 Zaki Jalloh [facility] POCT GLUCOSE (AUTOMATED) 2023-02-05 02:34:00 Zaki Jalloh [facility] POCT GLUCOSE (AUTOMATED) 2023-02-04 22:37:00 Edilberto [facility] POCT GLUCOSE (AUTOMATED) 2023-02-04 17:45:00 Sebastian Danielson [facility] US ABDOMEN LIMITED 2023-02-04 17:04:00 [facility] POCT GLUCOSE (AUTOMATED) 2023-02-04 12:50:00 Edilberto [facility] MAGNESIUM 2023-02-04 10:11:00 Sebastian Danielson [facility] BASIC METABOLIC PANEL (NA, K, CL, CO2, GLUCOSE, BUN, CREATININE, CA) 2023-02-04 10:11:00 Edilberto [facility] CBC WITH DIFF 2023-02-04 10:11:00 Sebastian Danielson [facility] POCT GLUCOSE (AUTOMATED) 2023-02-04 07:04:00 Edilberto [facility] LIPASE 2023-02-04 03:54:00 Miguel Ángel Sinclair [facility] COMP. METABOLIC PANEL (53964) 2023-02-04 03:54:00 Miguel Ángel Sinclair [facility] LIPID PANEL (80262)(TOTAL CHOLESTEROL, TRIGLYCERIDES, HDL) 2023-02-04 03:54:00 Miguel Ángel Sinclair [facility] CBC WITH DIFF 2023-02-04 03:54:00 Miguel Ángel Sinclair [facility] GLYCOSYLATED HEMOGLOBIN (A1C) 2023-02-04 03:54:00 Edilberto [facility] POCT GLUCOSE (AUTOMATED) 2023-02-04 03:49:00 Doctor Unassigned, [place] [facility] CONSENT/REFUSAL FOR DIAGNOSIS AND TREATMENT 2023-02-04 03:39:11 Doctor Unassigned, [place] [facility] Encounters Start Date/Time End Date/Time Encounter Type Admission Type Attending [facility] Care Facility Care Department Encounter ID Source 2024-12-28 15:19:05 2024-12-28 15:19:05 Outpatient [facility] [id number] [facility] 2024-12-28 00:00:00 2024-12-28 00:00:00 Outpatient Visit [facility] [id number] [facility] 2024-12-27 14:33:27 2024-12-27 14:33:27 Outpatient [facility] [id number] [facility] 2023-06-27 11:02:00 2023-06-27 11:57:00 Emergency THOMAS MARTINEZ [facility] ERT [id number] [facility] 2023-06-27 11:02:00 2023-06-27 11:57:[address] [facility] [id number] [facility] 2023-02-03 21:46:00 2023-02-06 17:50:00 Outpatient Cornelius GLYNNNIA ZAKI [facility] KHALIDA [id number] [facility] 2023-02-03 21:46:00 2023-02-06 17:50:00 Emergency Miguel Ángel Sinclair David Abdullah, [place] [facility] [id number] [facility] Results Test Description Test Time Test Comments Results Result Co mments Source [facility] GLUCOSE (AUTOMATED)2023-02-06 16:52:05* Test Item Value Reference Range Interpretation Comme nts POCT GLU (test code = 8377941288) 230 mg/dL 70-110 H Lab Interpretation (test cod e = 44018-4) Abnormal [facility] GLUCOSE (AUTOMATED)2023-02-06 13:24:13* Test Item Value Reference Range Interpretation Comme nts POCT GLU (test code = 7870531590) 141 mg/dL 70-110 H Lab Interpretation (test cod e = 33961-8) [facility]normal [facility] (NA, K, CL, CO2, GLUCOSE, BUN, CREATININE, CA)2023-02-06 10:33:18* Test Item Value Reference Range Interpretation Comme nts NA (test code = 7023595776) 137 mmol/L 135-145 K (test code = 1888221616) 3.6 mmol/L 3.5-5.0 CL (test code = 1500611165) 105 mmol/L 98-108 CO2 TOTAL (test code = 7783066780) 28 mmol/L 23-31 AGAP (test code = 5776091989) 4 2-16 BUN (test code = 3851498470) 12 mg/dL 7-23 GLUCOSE (test code = 7198259713) 160 mg/dL 70-110 H CREATININE (test code = 9099618460) 0.57 mg/dL 0.60-1.25 L CALCIUM (test code = 7122439071) 8.1 mg/dL 8.6-10.6 L eGFR (test code = 2381182704) 156.8 mL/min/1.73m2 CYNDEE (test code = CYNDEE) Association of Glomerular Filtration Rate (GFR) and Staging of Kidney Disease* + --+ --+ ------+| GFR (mL/min/1.73 m2) ?| With Kidney Damage ?| ?Without Kidney Damage+ --------+ --------+ +| ?>90 ?| ?Stage one ?| ? Normal ?+ ---+ ---+ -------+| ?60-89 ?| ?Stage two ?| ? Decreased GFR ? + --+ --+ ------+| ?30-59 ?| ?Stage three ?| ? Stage three ? + --+ --+ ------+| ?15-29 ?| ?Stage four ? | ? Stage four ?+ ---+ ---+ -------+| ?<15 (or dialysis) ? ?| ?Stage five ? | ? Stage five ?+ ---+ ---+ -------+ *Each stage assumes the associated GFR level has been in effect for at least three months. ?Stages 1 to 5, with or without kidney disease, indicate chronic kidney disease. Notes: Determination of stages one and two (with eGFR >59mL/min/1.73 m2) requires estimation of kidney damage for at least three months as defined by structural or functional abnormalities of the kidney, manifested by either:Pathological abnormalities or Markers of kidney damage (including abnormalities in the composition of the blood or urine or abnormalities in imaging tests). Lab Interpretation (test code = 84659-3) [facility] 10:33:18* Test Item Value Reference Range Interpretation Comme nts PHOSPHORUS (test code = 9930287679) 3.2 mg/dL 2.5-5.0 Lab Interpretation (test cod e = 86532-7) Normal [facility] 10:32:37* Test Item Value Reference Range Interpretation Comme nts LIPASE (test code = 7375829238) 465 U/L 0-220 H Lab Interpretation (test cod e = 27565-4) Abnormal [facility] WITH POVX1417-00-50 10:24:02* Test Item Value Reference Range Interpretation Comme nts WBC (test code = 6690-2) 5.52 See_Comment [Automated [email or web address]] The system which generated this result transmitted reference range: 4.20 - 10.70 10*3/?L. The reference range was not used to interpret this result as normal/abnormal. RBC (test code = 789-8) 4.56 See_Comment [Automated [email or web address]] The system which generated this result transmitted reference range: 4.26 - 5.52 10*6/?L. The reference range was not used to interpret this result as normal/abnormal. HGB (test code = 718-7) 13.4 g/dL 12.2-16.4 HCT (test code = 4544-3) 38.0 % 38.4-49.3 L MCV (test code = 787-2) 83.3 fL 81.7-95.6 MCH (test code = 785-6) 29.4 pg 26.1-32.7 MCHC (test code = 786-4) 35.3 g/dL 31.2-35.0 H RDW-SD (test code = 20108-3) 36.0 fL 38.5-51.6 L RDW-CV (test code = 788-0) 11.9 % 12.1-15.4 L PLT (test code = 777-3) 234 See_Comment [Automated messa ge] The system which generated this result transmitted reference range: 150 - 328 10*3/?L. The reference range was not used to interpret this result as normal/abnormal. MPV (test code = 58555-8) 10.8 fL 9.8-13.0 NRBC/100 WBC (test code = 2797443007) 0.0 See_Comment [Automated [employer]] The system which generated this result transmitted reference range: 0.0 - 10.0 /100 WBCs. The reference range was not used to interpret this result as normal/abnormal. NRBC x10^3 (test code = 8641885932) See_Comment [Automated messa ge] The system which generated this result transmitted reference range: 10*3/?L. The reference range was not used to interpret this result as normal/abnormal. GRAN MAT (NEUT) % (test code = 770-8) 36.2 % IMM GRAN % (test code = 9064196982) 0.20 % LYMPH % (test code = 736-9) 46.6 % MONO % (test code = 5905-5) 7.8 % EOS % (test code = 713-8) 8.7 % BASO % (test code = 706-2) 0.5 % GRAN MAT x10^3(ANC) (test code = 3749858931) 2.00 10*3/uL 1.99-6.95 IMM GRAN x10^3 (test code = 8614725495) 0.00-0.06 LYMPH x10^3 (test code = 731-0) 2.57 10*3/uL 1.09-3.23 MONO x10^3 (test code = 742-7) 0.43 10*3/uL 0.36-1.02 EOS x10^3 (test code = 711-2) 0.48 10*3/uL 0.06-0.53 BASO x10^3 (test code = 704-7) 0.03 10*3/uL 0.01-0.09 Lab Interpretation (test code = 79987-4) Abnormal [facility] GLUCOSE (AUTOMATED)2023-02-06 09:27:23* Test Item Value Reference Range Interpretation Comme nts POCT GLU (test code = 9811672692) 157 mg/dL 70-110 H Lab Interpretation (test cod e = 18164-2) Abnormal [facility] GLUCOSE (AUTOMATED)2023-02-06 06:02:56* Test Item Value Reference Range Interpretation Comme nts POCT GLU (test code = 8082779074) 171 mg/dL 70-110 H Lab Interpretation (test cod e = 85364-7) Abnormal [facility] GLUCOSE (AUTOMATED)2023-02-06 02:15:30* Test Item Value Reference Range Interpretation Comme nts POCT GLU (test code = 8978228920) 233 mg/dL 70-110 H Lab Interpretation (test cod e = 49602-8) Abnormal [facility] GLUCOSE (AUTOMATED)2023-02-05 23:02:57* Test Item Value Reference Range Interpretation Comme nts POCT GLU (test code = 9857766982) 122 mg/dL 70-110 H Lab Interpretation (test cod e = 04855-4) Abnormal [facility] GLUCOSE (AUTOMATED)2023-02-05 17:36:24* Test Item Value Reference Range Interpretation Comme nts POCT GLU (test code = 8229098884) 215 mg/dL 70-110 H Lab Interpretation (test cod e = 92554-4) Abnormal [facility] GLUCOSE (AUTOMATED)2023-02-05 14:02:17* Test Item Value Reference Range Interpretation Comme nts POCT GLU (test code = 5181981313) 168 mg/dL 70-110 H Lab Interpretation (test cod e = 94424-3) [facility]normal [facility] 11:41:35* Test Item Value Reference Range Interpretation Comme nts MAGNESIUM (test code = 1316856821) 2.0 mg/dL 1.7-2.4 Lab Interpretation (test cod e = 46796-9) Normal [facility] METABOLIC PANEL (NA, K, CL, CO2, GLUCOSE, BUN, CREATININE, CA)2023-02-05 11:41:15* Test Item Value Reference Range Interpretation Comme nts NA (test code = 7533150869) 137 mmol/L 135-145 K (test code = 6563092854) 3.4 mmol/L 3.5-5.0 L CL (test code = 8395525359) 107 mmol/L 98-108 CO2 TOTAL (test code = 5567650851) 26 mmol/L 23-31 AGAP (test code = 4779504860) 4 2-16 BUN (test code = 2682702066) 8 mg/dL 7-23 GLUCOSE (test code = 9586441412) 143 mg/dL 70-110 H CREATININE (test code = 6241907318) 0.49 mg/dL 0.60-1.25 L CALCIUM (test code = 6454371830) 7.2 mg/dL 8.6-10.6 L eGFR (test code = 6536612291) 186.7 mL/min/1.73m2 CYNDEE (test code = CYNDEE) Association of Glomerular Filtration Rate (GFR) and Staging of Kidney Disease* + --+ --+ ------+| GFR (mL/min/1.73 m2) ?| With Kidney Damage ?| ?Without Kidney Damage+ --------+ --------+ +| ?>90 ?| ?Stage one ?| ? Normal ?+ ---+ ---+ -------+| ?60-89 ?| ?Stage two ?| ? Decreased GFR ? + --+ --+ ------+| ?30-59 ?| ?Stage three ?| ? Stage three ? + --+ --+ ------+| ?15-29 ?| ?Stage four ? | ? Stage four ?+ ---+ ---+ -------+| ?<15 (or dialysis) ? ?| ?Stage five ? | ? Stage five ?+ ---+ ---+ -------+ *Each stage assumes the associated GFR level has been in effect for at least three months. ?Stages 1 to 5, with or without kidney disease, indicate chronic kidney disease. Notes: Determination of stages one and two (with eGFR >59mL/min/1.73 m2) requires estimation of kidney damage for at least three months as defined by structural or functional abnormalities of the kidney, manifested by either:Pathological abnormalities or Markers of kidney damage (including abnormalities in the composition of the blood or urine or abnormalities in imaging tests). Lab Interpretation (test code = 83792-6) [facility]:15* Test Item Value Reference Range Interpretation Comme nts LIPASE (test code = 5705187064) 51 U/L 0-220 Lab Interpretation (test cod e = 71440-6) Normal [facility] (60943) (ALB,T.PRO,BILI T,BU/BC,ALT,AST,ALK PHOS)2023-02-05 11:41:15* Test Item Value Reference Range Interpretation Comme nts TOTAL BILI (test code = 3036454071) 0.4 mg/dL 0.1-1.1 BILI UNCON (test code = 7198551872) 0.3 mg/dL 0.1-1.1 BILI CONJ (test code = 7760812519) 0.0 mg/dL 0.0-0.3 T PROTEIN (test code = 0895847013) 5.5 g/dL 6.3-8.2 L ALBUMIN (test code = 1248340151) 2.8 g/dL 3.5-5.0 L ALK PHOS (test code = 8468822772) 79 U/L 34-122 ALTv (test code = 1742-6) 18 U/L 5-50 AST(SGOT) (test code = 1903006693) 26 U/L 13-40 Lab Interpretation (test cod e = 22109-5) [facility]normal [facility] WITH [id number] 11:25:52* Test Item Value Reference Range Interpretation Comme nts WBC (test code = 6690-2) 5.45 See_Comment [Automated Picture[employer] Universe[employer] ge] The system which generated this result transmitted reference range: 4.20 - 10.70 10*3/?L. The reference range was not used to interpret this result as normal/abnormal. RBC (test code = 789-8) 4.33 See_Comment [Automated messa ge] The system which generated this result transmitted reference range: 4.26 - 5.52 10*6/?L. The reference range was not used to interpret this result as normal/abnormal. HGB (test code = 718-7) 12.9 g/dL 12.2-16.4 HCT (test code = 4544-3) 36.1 % 38.4-49.3 L MCV (test code = 787-2) 83.4 fL 81.7-95.6 MCH (test code = 785-6) 29.8 pg 26.1-32.7 MCHC (test code = 786-4) 35.7 g/dL 31.2-35.0 H RDW-SD (test code = 63380-6) 36.3 fL 38.5-51.6 L RDW-CV (test code = 788-0) 11.9 % 12.1-15.4 L PLT (test code = 777-3) 212 See_Comment [Automated messa ge] The system which generated this result transmitted reference range: 150 - 328 10*3/?L. The reference range was not used to interpret this result as normal/abnormal. MPV (test code = 21647-1) 10.6 fL 9.8-13.0 NRBC/100 WBC (test code = 9147932297) 0.0 See_Comment [Automated Chooos ssage] The system which generated this result transmitted reference range: 0.0 - 10.0 /100 WBCs. The reference range was not used to interpret this result as normal/abnormal. NRBC x10^3 (test code = 8978911670) See_Comment [Automated Picture[employer] ge] The system which generated this result transmitted reference range: 10*3/?L. The reference range was not used to interpret this result as normal/abnormal. GRAN MAT (NEUT) % (test code = 770-8) 42.4 % IMM GRAN % (test code = 3151574940) 0.20 % LYMPH % (test code = 736-9) 36.9 % MONO % (test code = 5905-5) 10.1 % EOS % (test code = 713-8) 9.5 % BASO % (test code = 706-2) 0.9 % GRAN MAT x10^3(ANC) (test code = 1615707221) 2.31 10*3/uL 1.99-6.95 IMM GRAN x10^3 (test code = 1832194209) 0.00-0.06 LYMPH x10^3 (test code = 731-0) 2.01 10*3/uL 1.09-3.23 MONO x10^3 (test code = 742-7) 0.55 10*3/uL 0.36-1.02 EOS x10^3 (test code = 711-2) 0.52 10*3/uL 0.06-0.53 BASO x10^3 (test code = 704-7) 0.05 10*3/uL 0.01-0.09 Lab Interpretation (test code = 49306-4) Abnormal [facility] GLUCOSE (AUTOMATED)2023-02-05 10:39:27* Test Item Value Reference Range Interpretation Comme nts POCT GLU (test code = 1243969510) 138 mg/dL 70-110 H Lab Interpretation (test cod e = 59001-7) Abnormal [facility] GLUCOSE (AUTOMATED)2023-02-05 06:06:46* Test Item Value Reference Range Interpretation Comme nts POCT GLU (test code = 2710207887) 205 mg/dL 70-110 H Lab Interpretation (test cod e = 00085-9) Abnormal [facility] GLUCOSE (AUTOMATED)2023-02-05 02:37:52* Test Item Value Reference Range Interpretation Comme nts POCT GLU (test code = 2011636563) 148 mg/dL 70-110 H Lab Interpretation (test cod e = 61028-7) Abnormal [facility] GLUCOSE (AUTOMATED)2023-02-04 22:38:28* Test Item Value Reference Range Interpretation Comme nts POCT GLU (test code = 1589859619) 189 mg/dL 70-110 H Lab Interpretation (test cod e = 41145-6) Abnormal [facility] GLUCOSE (AUTOMATED)2023-02-04 17:51:26* Test Item Value Reference Range Interpretation Comme nts POCT GLU (test code = 7709883720) 184 mg/dL 70-110 H Lab Interpretation (test cod e = 06395-9) Abnormal [facility] GLUCOSE (AUTOMATED)2023-02-04 12:57:20* Test Item Value Reference Range Interpretation Comme nts POCT GLU (test code = 5350162545) 187 mg/dL 70-110 H Lab Interpretation (test cod e = 80461-7) [facility] (NA, K, CL, CO2, GLUCOSE, BUN, CREATININE, CA)2023-02-04 12:00:09* Test Item Value Reference Range Interpretation Comme nts NA (test code = 2028606355) 135 mmol/L 135-145 K (test code = 0950216344) 3.4 mmol/L 3.5-5.0 L CL (test code = 2927843363) 104 mmol/L 98-108 CO2 TOTAL (test code = 8137839485) 26 mmol/L 23-31 AGAP (test code = 3138804677) 5 2-16 BUN (test code = 5641305140) 16 mg/dL 7-23 GLUCOSE (test code = 1398565338) 204 mg/dL 70-110 H CREATININE (test code = 0460844520) 0.57 mg/dL 0.60-1.25 L CALCIUM (test code = 7391195418) 7.3 mg/dL 8.6-10.6 L eGFR (test code = 1610373841) 156.8 mL/min/1.73m2 CYNDEE (test code = CYNDEE) Association of Glomerular Filtration Rate (GFR) and Staging of Kidney Disease* + --+ --+ ------+| GFR (mL/min/1.73 m2) ?| With Kidney Damage ?| ?Without Kidney Damage+ --------+ --------+ +| ?>90 ?| ?Stage one ?| ? Normal ?+ ---+ ---+ -------+| ?60-89 ?| ?Stage two ?| ? Decreased GFR ? + --+ --+ ------+| ?30-59 ?| ?Stage three ?| ? Stage three ? + --+ --+ ------+| ?15-29 ?| ?Stage four ? | ? Stage four ?+ ---+ ---+ -------+| ?<15 (or dialysis) ? ?| ?Stage five ? | ? Stage five ?+ ---+ ---+ -------+ *Each stage assumes the associated GFR level has been in effect for at least three months. ?Stages 1 to 5, with or without kidney disease, indicate chronic kidney disease. Notes: Determination of stages one and two (with eGFR >59mL/min/1.73 m2) requires estimation of kidney damage for at least three months as defined by structural or functional abnormalities of the kidney, manifested by either:Pathological abnormalities or Markers of kidney damage (including abnormalities in the composition of the blood or urine or abnormalities in imaging tests). Lab Interpretation (test code = 14465-1) [facility]normal [facility] 12:00:09* Test Item Value Reference Range Interpretation Comme nts MAGNESIUM (test code = 4695887095) 1.6 mg/dL 1.7-2.4 L Lab Interpretation (test cod e = 85263-2) [facility]normal [facility] WITH [id number] 10:31:12* Test Item Value Reference Range Interpretation Comme nts WBC (test code = 6690-2) 7.10 See_Comment [Automated Picture[employer]] The system which generated this result transmitted reference range: 4.20 - 10.70 10*3/?L. The reference range was not used to interpret this result as normal/abnormal. RBC (test code = 789-8) 4.66 See_Comment [Automated [employer]] The system which generated this result transmitted reference range: 4.26 - 5.52 10*6/?L. The reference range was not used to interpret this result as normal/abnormal. HGB (test code = 718-7) 13.7 g/dL 12.2-16.4 HCT (test code = 4544-3) 39.0 % 38.4-49.3 MCV (test code = 787-2) 83.7 fL 81.7-95.6 MCH (test code = 785-6) 29.4 pg 26.1-32.7 MCHC (test code = 786-4) 35.1 g/dL 31.2-35.0 H RDW-SD (test code = 92844-3) 36.0 fL 38.5-51.6 L RDW-CV (test code = 788-0) 11.9 % 12.1-15.4 L PLT (test code = 777-3) 220 See_Comment [Automated [employer]] The system which generated this result transmitted reference range: 150 - 328 10*3/?L. The reference range was not used to interpret this result as normal/abnormal. MPV (test code = 79825-4) 10.3 fL 9.8-13.0 NRBC/100 WBC (test code = 2474069682) 0.0 See_Comment [Automated me ssage] The system which generated this result transmitted reference range: 0.0 - 10.0 /100 WBCs. The reference range was not used to interpret this result as normal/abnormal. NRBC x10^3 (test code = 1759816161) See_Comment [Automated messa ge] The system which generated this result transmitted reference range: 10*3/?L. The reference range was not used to interpret this result as normal/abnormal. GRAN MAT (NEUT) % (test code = 770-8) 61.1 % IMM GRAN % (test code = 7318660461) 0.30 % LYMPH % (test code = 736-9) 25.5 % MONO % (test code = 5905-5) 8.3 % EOS % (test code = 713-8) 4.2 % BASO % (test code = 706-2) 0.6 % GRAN MAT x10^3(ANC) (test code = 4891257221) 4.34 10*3/uL 1.99-6.95 IMM GRAN x10^3 (test code = 0488438363) 0.00-0.06 LYMPH x10^3 (test code = 731-0) 1.81 10*3/uL 1.09-3.23 MONO x10^3 (test code = 742-7) 0.59 10*3/uL 0.36-1.02 EOS x10^3 (test code = 711-2) 0.30 10*3/uL 0.06-0.53 BASO x10^3 (test code = 704-7) 0.04 10*3/uL 0.01-0.09 Lab Interpretation (test code = 54467-9) Abnormal [facility] GLUCOSE (AUTOMATED)2023-02-04 07:05:45* Test Item Value Reference Range Interpretation Comme nts POCT GLU (test code = 3169738691) 234 mg/dL 70-110 H Lab Interpretation (test cod e = 05823-0) [facility]normal [facility]ennialGlycosylated Hemoglobin (A1C)2023-02-04 06:17:08* Test Item Value Reference Range Interpretation Comme nts HGB A1C (test code = 4548-4) 12.4 % 4.0-5.7 H CYNDEE (test code = CYNDEE) Reference RangesNormal: <5.7%Prediabetes: 5.7 - 6.4%Diabetes: > 6.5% Lab Interpretation (test code = 26062-8) [facility]normal [facility]ennialLIPID PANEL (89872)(TOTAL CHOLESTEROL, TRIGLYCERIDES, HDL)2023-02-04 06:11:28* Test Item Value Reference Range Interpretation Comme nts CHOL (test code = 2602286151) 192 mg/dL 120-200 HDL (test code = 6670259047) 63 mg/dL >=40 HDLC RATIO (test code = 5086296608) 3.0 <=5.0 TRIG (test code = 5960633114) 95 mg/dL 30-170 LDL CHOL (test code = 55906-8) 110 mg/dL <=160 VLDL (test code = 1181524783) 19 mg/dL 5-60 Lab Interpretation (test cod e = 45653-4) Normal [facility]. METABOLIC PANEL (10734)2023-02-04 04:25:37* Test Item Value Reference Range Interpretation Comme nts NA (test code = 8702284987) 135 mmol/L 135-145 K (test code = 1486275489) 4.3 mmol/L 3.5-5.0 CL (test code = 2898348908) 98 mmol/L 98-108 CO2 TOTAL (test code = 2513937188) 28 mmol/L 23-31 AGAP (test code = 1856263468) 9 2-16 BUN (test code = 9470117119) 16 mg/dL 7-23 GLUCOSE (test code = 5936725399) 330 mg/dL 70-110 H CREATININE (test code = 1900259143) 0.73 mg/dL 0.60-1.25 TOTAL BILI (test code = 9264747934) 1.1 mg/dL 0.1-1.1 CALCIUM (test code = 6836874971) 9.0 mg/dL 8.6-10.6 T PROTEIN (test code = 3443344005) 7.7 g/dL 6.3-8.2 ALBUMIN (test code = 3765308321) 4.4 g/dL 3.5-5.0 ALK PHOS (test code = 7361408596) 114 U/L 34-122 ALTv (test code = 1742-6) 20 U/L 5-50 AST(SGOT) (test code = 2596113083) 19 U/L 13-40 eGFR (test code = 8985780948) 117.8 mL/min/1.73m2 CYNDEE (test code = CYNDEE) Association of Glomerular Filtration Rate (GFR) and Staging of Kidney Disease* + --+ --+ ------+| GFR (mL/min/1.73 m2) ?| With Kidney Damage ?| ?Without Kidney Damage+ --------+ --------+ +| ?>90 ?| ?Stage one ?| ? Normal ?+ ---+ ---+ -------+| ?60-89 ?| ?Stage two ?| ? Decreased GFR ? + --+ --+ ------+| ?30-59 ?| ?Stage three ?| ? Stage three ? + --+ --+ ------+| ?15-29 ?| ?Stage four ? | ? Stage four ?+ ---+ ---+ -------+| ?<15 (or dialysis) ? ?| ?Stage five ? | ? Stage five ?+ ---+ ---+ -------+ *Each stage assumes the associated GFR level has been in effect for at least three months. ?Stages 1 to 5, with or without kidney disease, indicate chronic kidney disease. Notes: Determination of stages one and two (with eGFR >59mL/min/1.73 m2) requires estimation of kidney damage for at least three months as defined by structural or functional abnormalities of the kidney, manifested by either:Pathological abnormalities or Markers of kidney damage (including abnormalities in the composition of the blood or urine or abnormalities in imaging tests). Lab Interpretation (test code = 49237-8) [facility] 04:25:37* Test Item Value Reference Range Interpretation Comme nts LIPASE (test code = 8353140604) 1445 U/L 0-220 H Lab Interpretation (test cod e = 51324-9) Abnormal [facility] WITH [id number] 04:11:34* Test Item Value Reference Range Interpretation Comme nts WBC (test code = 6690-2) 9.22 See_Comment [Automated messa ge] The system which generated this result transmitted reference range: 4.20 - 10.70 10*3/?L. The reference range was not used to interpret this result as normal/abnormal. RBC (test code = 789-8) 5.57 See_Comment H [Automated messa ge] The system which generated this result transmitted reference range: 4.26 - 5.52 10*6/?L. The reference range was not used to interpret this result as normal/abnormal. HGB (test code = 718-7) 16.6 g/dL 12.2-16.4 H HCT (test code = 4544-3) 45.6 % 38.4-49.3 MCV (test code = 787-2) 81.9 fL 81.7-95.6 MCH (test code = 785-6) 29.8 pg 26.1-32.7 MCHC (test code = 786-4) 36.4 g/dL 31.2-35.0 H RDW-SD (test code = 86286-7) 35.4 fL 38.5-51.6 L RDW-CV (test code = 788-0) 11.9 % 12.1-15.4 L PLT (test code = 777-3) 261 See_Comment [Automated messa ge] The system which generated this result transmitted reference range: 150 - 328 10*3/?L. The reference range was not used to interpret this result as normal/abnormal. MPV (test code = 08620-0) 10.6 fL 9.8-13.0 NRBC/100 WBC (test code = 4124830284) 0.0 See_Comment [Automated Chooos ssage] The system which generated this result transmitted reference range: 0.0 - 10.0 /100 WBCs. The reference range was not used to interpret this result as normal/abnormal. NRBC x10^3 (test code = 1446855243) See_Comment [Automated messa ge] The system which generated this result transmitted reference range: 10*3/?L. The reference range was not used to interpret this result as normal/abnormal. GRAN MAT (NEUT) % (test code = 770-8) 79.7 % IMM GRAN % (test code = 1062842772) 0.30 % LYMPH % (test code = 736-9) 12.0 % MONO % (test code = 5905-5) 5.0 % EOS % (test code = 713-8) 2.6 % BASO % (test code = 706-2) 0.4 % GRAN MAT x10^3(ANC) (test code = 6222997768) 7.34 10*3/uL 1.99-6.95 H IMM GRAN x10^3 (test code = 6696434863) 0.03 10*3/uL 0.00-0.06 LYMPH x10^3 (test code = 731-0) 1.11 10*3/uL 1.09-3.23 MONO x10^3 (test code = 742-7) 0.46 10*3/uL 0.36-1.02 EOS x10^3 (test code = 711-2) 0.24 10*3/uL 0.06-0.53 BASO x10^3 (test code = 704-7) 0.04 10*3/uL 0.01-0.09 Lab Interpretation (test code = 30723-2) [facility]normal [facility]2023-02-04 03:51:29* Test Item Value Reference Range Interpretation Comme nts POCT GLU (test code = 6938291417) 281 mg/dL 70-110 H Lab Interpretation (test cod e = 54159-8) Abnormal [facility] Notes Date/Time Note Provider Source [place] [facility]2023-07-31 11:56:44 Pt given printed and verbal discharge instructions regarding RICE, Shoulder problems, encouraged hydration, 2 Prescriptions provided Discussed ibuprofen and to take with food to avoid GI distress. Pt verbalized understanding of instructions, pt awake alert oriented, resp reg unlabored, skin w/d,color appropriate for race, moves all ext well,pt encouraged to follow up with pcp Advised to seek medical attention for new/prolonged/worsening of symptoms, No adverse reaction to meds given in ER noted upon discharge Awake, alert oriented, resp reg unlabored, skin w/d, pt leaving amb with steady gait, in no apparent distress, [facility]2023-07-31 11:00:55 Patient reports that this AM at work he slipped while working and tried to catch himself with his left arm. Reports pain to his left shoulder that radiates down to his hand. [facility] [place] [facility]"
[2025-07-06] MEDS ORDERED: NA CHLORIDE 0.9% 1,000 ML ONE ×2 (16:43→18:13)
[2025-07-06] MEDS ORDERED: DIPHENHYDRAMINE 50 MG/ML VIAL ONE (16:43)
[2025-07-06] MEDS ORDERED: METOCLOPRAMIDE 10 MG/2mL INJ ONE (16:43)
[2025-07-06 16:53] LABS: Absolute Lymphocytes (CBC) 1.3 K/uL (0.7-4.9); Hematocrit 46.9 % (39.6-49.0); Hemoglobin 16.4 g/dL (13.6-17.9); MCH 29.9 pg (27.0-35.0); MCHC 35.0 g/dL (32.0-36.0); MCV 85.5 fL (80-100); MPV 8.5 fL (7.6-11.3); Nucleated RBC Absolute Count 0.0 (0-0); Nucleated Red Blood Cells % 0.1 % (0-0); RBC Red Blood Cell Count 5.48 M/uL (4.33-5.43); White Blood Count 8.80 thou/uL (4.3-10.9)
[2025-07-06 17:07] LABS: Influenza A Ag Negative
[2025-07-06 17:08] LABS: Influenza B Ag Negative; SARS-CoV-2 Antigen Rapid Res Negative (Negative)
--- NOTE | 2025-07-06 17:10 | RAD REPORT ---
EXAM: CT Head Brain Wo Cont HISTORY: DIZZINESS COMPARISON: None TECHNIQUE: Multiple contiguous axial images were obtained for a CT of the brain without contrast. Sag ittal and coronal reformats were performed. One or more of the following dose reduction techniques were used: Automated exposure control, adjus tment of the mA and kV according to patient size, and iterative reconstruction. Unless otherwise specified, incidental findings do not require dedicated imaging follow-up. FINDINGS: No evidence of hydrocephalus, intracranial hemorrhage, or extra-axial fluid collection. The brain is normal in morphology. The calvarium is intact. The visualized paranasal sinuses and mastoid air cells are essentially clear . IMPRESSION: No evidence of acute intracranial abnormality.
--- NOTE | 2025-07-06 17:12 | RAD REPORT ---
EXAMINATION: ONE VIEW CHEST XR CLINICAL INDICATION: Male, 44 years old.,DYSPNEA TECHNIQUE: Frontal chest projection is submitted. Examination is limited by patient positioning and t echnique. COMPARISON: 12/13/2024. FINDINGS: The lungs are well inflated and clear. No pneumothorax or sizable effusion. The heart is normal in s ize. Mediastinal contours are unremarkable. IMPRESSION: No acute intrathoracic abnormalities.
[2025-07-06 17:26] LABS: Anion Gap 9.2 mEq/L (5.0-15.0); BUN Blood Urea Nitrogen 17.0 mg/dL (7-18); Potassium 4.2 mEq/L (3.5-5.1); Troponin High Sensitivity 3.4 pg/mL (<58.9)
[2025-07-06 17:45] LABS: Glucose Level 523.0 mg/dL (74-106)
[2025-07-06] MEDS ORDERED: INSULIN REGULAR (HUMAN) 100 UNIT/ML ONE (18:14)
[2025-07-06 18:26] LABS: PH, Venous Blood Gas 7.35 (7.32-7.42)
[2025-07-06 18:27] LABS: Base Excess, VBG 3.1 mmol/L (-2.0-3.0); HCO3, Venous Blood Gas 28.7 mmol/L (21.0-29.0); O2 Saturation, VBG 93.7 % (40.0-70.0); PCO2, Venous Blood Gas 52 mmHg (41-51); PO2, Venous Blood Gas 73 mmHg (25-40)
[2025-07-06 18:33] LABS: Sqamous Epithelial <5 /HPF (None Seen); Urine Crystals Unidentified Few /HPF (None Seen); Urine Micro Reflex YN NO BILL MICROSCOPIC; Urine Yeast (Budding) Trace /HPF (None Seen)
--- NOTE | 2025-07-06 19:09 | ER ---
Nurse's Notes [facility] Name: Vj Brar Sr Age: 44 yrs Sex: Male : 1980 Arrival Date: 07/06/2025 Time: 14:22 Bed 19 Private MD: Diagnosis: Hyperglycemia, unspecified;Dizziness and giddiness Presentation: 07/06 14:48 Chief complaint: Patient states: Weak, dizzy, nausea. cold, TRUONG, body aches started ll1 today. Coronavirus screen: Client denies travel out of the [place] in the last 14 days. fatigue, headache. Ebola Screen: Patient denies travel to an Ebola-affected area in the 21 days before illness onset. Initial Sepsis Screen: Does the patient meet any 2 criteria? No. Patient's initial sepsis screen is negative. Does the patient have a suspected source of infection? No. Patient's initial sepsis screen is negative. Risk Assessment: Do you want to hurt yourself or someone else? Patient reports no desire to harm self or others. Onset of symptoms was July 06, 2025. 14:48 Method Of Arrival: Ambulatory ll1 14:48 Acuity: FARIDA 3 ll1 Triage Assessment: 19:25 Pain: Also complains of. ss12 Historical: - Allergies: 14:49 No Known Allergies; ll1 - Immunization history:: Adult Immunizations up to date. - Infectious Disease History:: Denies. - Social history:: Smoking status: Patient denies any tobacco usage or history of. - History obtained from: . Screenin:20 [facility] ED Fall Risk Assessment (Adult) History of falling in the last 3 months, me1 including since admission No falls in past 3 months (0 pts) Confusion or Disorientation No (0 pts) Intoxicated or Sedated No (0 pts) Impaired Gait No (0 pts) Mobility Assist Device Used No (0 pt) Altered Elimination No (0 pt) Score/Fall Risk Level 0 - 2 = Low Risk Maintained a safe environment, Provided non-skid footwear, Hourly rounding (assess needs \T\ fall precautionary measures) done. Abuse screen: Denies threats or abuse. Nutritional screening: No deficits noted. Tuberculosis screening: No symptoms or risk factors identified. Assessment: 16:20 General: Appears ill, well groomed, well developed, well nourished, Behavior is calm, me1 cooperative, appropriate for age, Reports Weak, dizzy, nausea. cold, TRUONG, body aches started today. Pain: Denies pain. Neuro: Level of Consciousness is awake, alert, obeys commands, Oriented to person, place, time, situation, Appropriate for age Reports dizziness, headache. Cardiovascular: Patient's skin is warm and dry. Respiratory: Airway is patent Respiratory effort is even, unlabored, Respiratory pattern is regular, symmetrical. GI: Reports nausea. : No signs and/or symptoms were reported regarding the genitourinary system. EENT: No signs and/or symptoms were reported regarding the EENT system. Derm: Skin is intact, is healthy with good turgor, Skin is pink, warm \T\ dry. Musculoskeletal: Reports body aches and chills, reports generalized weakness. Vital Signs: 14:48 Pain 10/10; ll1 14:50 BP 142 / 92; Pulse 82; Resp 17; Temp 97.2; Pulse Ox 100% ; Weight 70.76 kg; Height 5 ll1 ft. 7 in. ; 17:00 BP 143 / 90; Pulse 70; Resp 17; Pulse Ox 99% ; me1 18:00 BP 120 / 72; Pulse 67; Resp 12; Pulse Ox 98% ; me1 19:00 BP 134 / 81; Pulse 64; Resp 13; Pulse Ox 99% ; me1 14:50 Body Mass Index 24.43 (70.76 kg, 170.18 cm) ll1 14:48 Pain Scale: Adult ll1 ED Course: 14:26 Patient arrived in ED. gl 14:41 Krystal Hernandez is Attending Physician. ci 14:47 Arm band placed on. ll1 14:49 Triage completed. ll1 16:20 Patient has correct armband on for positive identification. Bed in low position. Call va1 light in reach. Side rails up X2. Provided Education on: POC. Verbalized understanding. . Client placed on continuous cardiac and pulse oximetry monitoring. NIBP monitoring applied. transportation escort on. Pulse ox on. NIBP on. 16:20 No provider procedures requiring assistance completed. me1 16:24 Ghislaine Horta, CORA is Primary Nurse. me1 16:28 CT Head Brain wo Cont In Process Unspecified. EDMS 16:35 XRAY Chest (1 view) In Process Unspecified. EDMS 16:41 Basic Metabolic Panel Sent. me1 16:41 CBC with Diff Sent. me1 16:41 Troponin HS Sent. me1 16:41 Initial lab(s) drawn, by me, sent to lab. COVID swab sent to lab. Flu and/or RSV swab me1 sent to lab. Inserted saline lock: 22 gauge in right antecubital area, using aseptic technique. 16:57 EKG done, by ED staff, reviewed by Krystal Hernandez. me1 18:32 Urine collected: clean catch specimen, clear. me1 19:25 IV discontinued, intact, bleeding controlled, No redness/swelling at site. Pressure ss12 dressing applied. Administered Medications: 16:57 Drug: NS 0.9% IV 1000 ml IV at 1000 ml once; to be given as a bolus over 60 minutes me1 Route: IV; Rate: 1000 ml; Site: right antecubital; 18:09 Follow up: Response: No adverse reaction; IV Status: Completed infusion; IV Intake: me1 1000ml 16:57 Drug: metoCLOPramide IVP 10 mg IVP once; over 1 to 2 minutes Route: IVP; Site: right me1 antecubital; 18:09 Follow up: Response: No adverse reaction me1 16:57 Drug: diphenhydrAMINE IVP 25 mg IVP once Route: IVP; Site: right antecubital; me1 18:09 Follow up: Response: No adverse reaction me1 18:17 Drug: Insulin Regular Human Sub-Q 10 units Sub-Q once {Co-Signature: [email or web address] Candelaria, me1 Leonarda SHEPHERD).} Route: Sub-Q; Site: left lower abdomen; 19:26 Follow up: Response: No adverse reaction ss12 18:19 Drug: NS 0.9% IV 1000 ml IV at 1000 ml once; to be given as a bolus over 60 minutes me1 Route: IV; Rate: 1000 ml; Site: right antecubital; 19:26 Follow up: IV Status: Completed infusion; IV Intake: 1000ml ss12 Medication: 16:20 VIS not applicable for this client. me1 Point of Care Testing: Blood Glucose: 16:58 Blood Glucose: 437 mg/dL; me1 Ranges: Intake: 18:09 IV: 1000ml; Total: 1000ml. me1 19:26 IV: 1000ml; Total: 2000ml. ss12 Outcome: 19:08 Discharge ordered by . ci 19:25 Discharged to home ambulatory, cox monett 19:25 Condition: stable 19:25 Discharge instructions given to patient, family, Instructed on discharge instructions, follow up and referral plans. Demonstrated understanding of instructions, follow-up care, 19:26 Patient left the ED. ss12 Signatures: Dispatcher [employer] EDAdrienne Oconnor RN RN ll1 Ghislaine Horta RN RN me1 Krystal Hernandez Glenna, Reg Reg gl Marlin Isaac, RN RN ss12 Leonarda Reis RN kj2 Corrections: (The following items were deleted from the chart) 17:25 14:48 Chief complaint: Patient states: Weak, dizzy, nausea. cold, TRUONG, body aches me1 started today. ll1
--- NOTE | 2025-07-06 19:09 | EDPHYS ---
Physician Documentation [facility] Name: Vj Brar Sr Age: 44 yrs Sex: Male : 1980 Arrival Date: 07/06/2025 Time: 14:22 Bed 19 Private MD: ED Physician Krystal Hernandez HPI: 07/06 17:35 This 44 yrs old Male presents to ER via Ambulatory with complaints of ci Headache, Dizziness. 17:35 Patient is a 44-year-old male with PMH diabetes who presents to the ED with chief ci complaint of headache, chills, myalgias, dizziness that began this afternoon. Patient's reports he has not been checking his insulin. Denies any chest pain, shortness of breath.. Historical: - Allergies: 14:49 No Known Allergies; ll1 - Immunization history:: Adult Immunizations up to date. - Infectious Disease History:: Denies. - Social history:: Smoking status: Patient denies any tobacco usage or history of. - History obtained from: . ROS: 17:35 Constitutional: Negative for fever, and weight loss. +ve chills Cardiovascular: ci Negative for chest pain, palpitations, and edema, Respiratory: Negative for shortness of breath, cough, wheezing, and pleuritic chest pain, Abdomen/GI: Negative for abdominal pain, nausea, vomiting, diarrhea, and constipation, 17:35 Neuro: Positive for dizziness, headache, Exam: 17:35 Constitutional: This is a well developed, well nourished patient who is awake, alert, ci and in no acute distress. Head/Face: Normocephalic, atraumatic. Cardiovascular: Regular rate and rhythm with a normal S1 and S2. No gallops, murmurs, or rubs. Normal PMI, no JVD. No pulse deficits. Respiratory: Lungs have equal breath sounds bilaterally, clear to auscultation and percussion. No rales, rhonchi or wheezes noted. No increased work of breathing, no retractions or nasal flaring. Abdomen/GI: Soft, non-tender, with normal bowel sounds. No distension or tympany. No guarding or rebound. No evidence of tenderness throughout. Skin: Warm, dry with normal turgor. Normal color with no rashes, no lesions, and no evidence of cellulitis. MS/ Extremity: Pulses equal, no cyanosis. Neurovascular intact. Full, normal range of motion. Neuro: Awake and alert, GCS 15, oriented to person, place, time, and situation. Cranial nerves II-XII grossly intact. Motor strength 5/5 in all extremities. Sensory grossly intact. Cerebellar exam normal. Normal gait. Vital Signs: 14:48 Pain 10/10; ll1 14:50 BP 142 / 92; Pulse 82; Resp 17; Temp 97.2; Pulse Ox 100% ; Weight 70.76 kg; Height 5 ll1 ft. 7 in. ; 17:00 BP 143 / 90; Pulse 70; Resp 17; Pulse Ox 99% ; me1 18:00 BP 120 / 72; Pulse 67; Resp 12; Pulse Ox 98% ; me1 19:00 BP 134 / 81; Pulse 64; Resp 13; Pulse Ox 99% ; me1 14:50 Body Mass Index 24.43 (70.76 kg, 170.18 cm) ll1 14:48 Pain Scale: Adult ll1 MDM: 14:41 Medical Screening Exam initiated ci 17:35 Differential diagnosis: cluster headache, hypoglycemia, migraine, tension headache, ci Hypoglycemia, dehydration, DKA, HHS, viral URI. Data reviewed: vital signs, nurses notes. ED course: EKG shows normal sinus rhythm, heart rate 72, QTc 407 ms, no acute ischemic changes. 19:04 Special discussion: Discussed elevated glucose and need for better glycemic control. ci Will need very close outpatient with PCP. Patient and verbalized understanding and agree to follow-up.. ED course: Glucose 523, no anion gap, VBG with no metabolic acidosis. BHB negative. Not in DKA. Patient is AO x 4 NIH 0, with no change in mentation doubt HHS. He was given 2 L NS bolus, 10 units insulin subcu. Patient's dizziness has resolved, ambulatory in the ER with a steady gait. Patient did state that he suspected his glucose was low and drank several Cokes and orange juice which is why his glucose is elevated. Patient has been counseled on eating a low-carb diet.. ED course: Critical Care Procedure Note Authorized and Performed by: MD Odell Total critical care time: Approximately 60 minutes Due to a high probability of clinically significant, life threatening deterioration, the patient required my highest level of preparedness to intervene emergently and I personally spent this critical care time directly and personally managing the patient. This critical care time included obtaining a history; examining the patient; pulse oximetry; ordering and review of studies; arranging urgent treatment with development of a management plan; evaluation of patient's response to treatment; frequent reassessment; and, discussions with other providers. This critical care time was performed to assess and manage the high probability of imminent, life-threatening deterioration that could result in multi-organ failure. It was exclusive of separately billable procedures and treating other patients and teaching time. Please see MDM section and the rest of the note for further information on patient assessment and treatment.. 07/06 14:53 Order name: Basic Metabolic Panel; Complete Time: 18:01 ci 08 18:03 Interpretation: Abnormal: GLUC 523. ci 07/06 14:53 Order name: CBC with Diff; Complete Time: 17:27 ci 07/06 14:53 Order name: Troponin HS; Complete Time: 18:01 ci 07/06 14:53 Order name: COVID-19 Ag + Flu A+B Ag; Complete Time: 17:27 ci 08 17:09 Order name: Glucose, Ancillary Testing; Complete Time: 17:27 EDMS 07/06 17:27 Interpretation: Abnormal: GLUC,ANCIL 437. ci 08 18:02 Order name: BETA HYDROXYBUTYRATE; Complete Time: 18:44 ci 08 18:02 Order name: UA W/ Microscopic; Complete Time: 18:44 ci 08 18:04 Order name: VBG; Complete Time: 18:44 ci 08 19:23 Order name: Glucose, Ancillary Testing EDMS 07/06 14:53 Order name: CT Head Brain wo Cont; Complete Time: 17:27 ci 08 17:39 Interpretation: No acute disease. ci 07/06 14:53 Order name: XRAY Chest (1 view); Complete Time: 17:27 ci 08 17:39 Interpretation: No acute disease. ci 08 14:53 Order name: Cardiac monitoring; Complete Time: 16:57 ci 07/06 14:53 Order name: EKG - Nurse/Tech; Complete Time: 16:57 ci 07/06 14:53 Order name: IV Saline Lock; Complete Time: 16:41 ci 07/06 14:53 Order name: Labs collected and sent; Complete Time: 16:41 ci 07/06 14:53 Order name: O2 Per Protocol; Complete Time: 16:41 ci 07/06 14:53 Order name: O2 Sat Monitoring; Complete Time: 16:41 ci 07/06 14:53 Order name: Glucose Level; Complete Time: 16:56 ci Administered Medications: 16:57 Drug: NS 0.9% IV 1000 ml IV at 1000 ml once; to be given as a bolus over 60 minutes me1 Route: IV; Rate: 1000 ml; Site: right antecubital; 18:09 Follow up: Response: No adverse reaction; IV Status: Completed infusion; IV Intake: me1 1000ml 16:57 Drug: metoCLOPramide IVP 10 mg IVP once; over 1 to 2 minutes Route: IVP; Site: right in1 antecubital; 18:09 Follow up: Response: No adverse reaction me1 16:57 Drug: diphenhydrAMINE IVP 25 mg IVP once Route: IVP; Site: right antecubital; in1 18:09 Follow up: Response: No adverse reaction me1 18:17 Drug: Insulin Regular Human Sub-Q 10 units Sub-Q once {Co-Signature: [email or web address] (Chat[place], me1 Leonarda SHEPHERD).} Route: Sub-Q; Site: left lower abdomen; 19:26 Follow up: Response: No adverse reaction ss12 18:19 Drug: NS 0.9% IV 1000 ml IV at 1000 ml once; to be given as a bolus over 60 minutes me1 Route: IV; Rate: 1000 ml; Site: right antecubital; 19:26 Follow up: IV Status: Completed infusion; IV Intake: 1000ml ss12 Point of Care Testing: Blood Glucose: 16:58 Blood Glucose: 437 mg/dL; me1 Ranges: Critical Glucose Levels:Adult <50 mg/dl or >400 mg/dl <40 mg/dl or >180 mg/dl Disposition Summary: 07/06/25 19:08 Discharge Ordered Notes: Location: Home ci Condition: Stable ci Diagnosis - Hyperglycemia, unspecified ci - Dizziness and giddiness ci Followup: ci - With: Private Physician - When: 1 - 2 days - Reason: Recheck today's complaints, Re-evaluation by your physician Discharge Instructions: - Discharge Summary Sheet ci - Dizziness ci - Hyperglycemia, [id number] ci Forms: - Medication Reconciliation Form ci - Antibiotic Education ci - Prescription Opioid Use ci - Patient Portal Instructions ci - Leadership Thank You Letter ci Critical care time excluding procedures: 19:04 Critical care time: Bedside Care: 60 minutes. Total time: 60 minutes ci Signatures: Dispatcher [employer] EDMS Adrienne Gudino RN RN ll1 Ghislaine Horta RN RN me1 David Edumateo ci Marlin Isaac RN ss12 Leonarda Reis RN kj2 Corrections: (The following items were deleted from the chart) 14:53 14:53 Head Brain Wo Cont+CT.RAD.BRZ ordered. EDMS EDMS 14:53 14:53 BASIC METABOLIC PANEL+C.LAB.BRZ ordered. EDMS EDMS 14:53 14:53 CBC+H.LAB.BRZ ordered. EDMS EDMS 14:53 14:53 Troponin High Sensitivity+C.LAB.BRZ ordered. EDMS EDMS 14:54 14:53 COVID-19 Ag + Flu A+B Ag+I.LAB.BRZ ordered. EDMS EDMS 14:54 14:54 Chest Single View+RAD.RAD.BRZ ordered. EDMS EDMS 18:03 18:03 BETA HYDROXYBUTYRATE+C.LAB.BRZ ordered. EDMS EDMS 18:03 18:03 UA W/ Microscopic+U.LAB.BRZ ordered. EDMS EDMS 19:10 19:04 ED course: Critical Care Procedure Note Authorized and Performed by: MD Name ci Total critical care time: Approximately 60 minutes Due to a high probability of clinically significant, life threatening deterioration, the patient required my highest level of preparedness to intervene emergently and I personally spent this critical care time directly and personally managing the patient. This critical care time included obtaining a history; examining the patient; pulse oximetry; ordering and review of studies; arranging urgent treatment with development of a management plan; evaluation of patient's response to treatment; frequent reassessment; and, discussions with other providers. This critical care time was performed to assess and manage the high probability of imminent, life-threatening deterioration that could result in multi-organ failure. It was exclusive of separately billable procedures and treating other patients and teaching time. Please see MDM section and the rest of the note for further information on patient assessment and treatment.. ci 19:10 19:04 ED course: Glucose 523, no anion gap, VBG with no metabolic acidosis. BHB ci negative. Not in DKA. Patient is AO x 4 with no change in mentation doubt HHS. He was given 2 L NS bolus, 10 units insulin subcu. Patient's dizziness has resolved, ambulatory in the ER with a steady gait. Patient did state that he suspected his glucose was low and drank several Cokes and orange juice which is why his glucose is elevated. Patient has been counseled on eating a low-carb diet.. ci
[2025-07-06 20:06] VITALS: TEMP 97.2
[2025-07-06 20:14] VITALS: BP 134/81; O2SAT 99
== END 2025-07-06 19:26 | disposition home or self-care (01) ==
LOC: ER 14:22
DX: E11.65 Type 2 diabetes mellitus with hyperglycemia (principal)
CPT/HCPCS: 36415; 70450; 71045; 80048; 81001; 82010; 82803; 82947; 84484; 85025; 87428; 93005; 96361; 96372; 96374; 96375; 99285; J1200; J1815; J2765; J7030